=== PATIENT | male | born 1970 | race African-American/Black ===

== ENCOUNTER 2020-08-13 08:59 | Outpatient (CLI) | payer OTHER ==
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
== END 2020-08-13 09:00 | disposition home or self-care (01) ==
LOC: BICRAD 08:59
PROVIDERS: ATTEND Nurse Practitioner Family
DX: V89.2XXA Person injured in unspecified motor-vehicle accident, traffic, initial encounter (principal)
CPT/HCPCS: 72040; 72072

== ENCOUNTER 2021-08-15 20:31 | Emergency (ER) | payer OTHER, SELFPAY ==
[2021-08-15] MEDS ORDERED: Acetaminophen 500 MG TAB ONE (21:06)
[2021-08-15 21:12] LABS: Bilirubin Negative (Negative); Blood, Urine Negative (Negative); Clarity Clear (Clear); Glucose, Urine (Dipstick) Normal (Negative); Ketone, Urine Negative (Negative); Leukocyte Negative Leu/uL (Negative); Nitrite Negative (Negative); Protein, Urine (Dipstick) 10 mg/dL (Neg-Trace); Specific Gravity, Urine 1.023 (1.002-1.036); Urobilinogen 3 mg/dL (Less than 2); pH, Urine 7.5 (5.0-9.0)
[2021-08-15 21:25] LABS: #Basophils 0.1 thou/uL (0.0-0.2); #Eosinphils 0.1 thou/uL (0.0-0.7); #Lymphocytes 0.6 thou/uL (1.20-3.40); #Neutrophils 8.8 thou/uL (1.40-6.50); %Basophils 0.6 % (0.0-1.0); %Eosinophils 0.6 % (0.0-10.0); %Lymphocytes 5.8 % (21.0-51.0); %Monocytes 9.1 % (0.0-10.0); %Neutrophils 83.9 % (42.0-75.0); Hemoglobin 13.1 g/dL (14.0-18.0); Mean Corpuscular Hemoglobin 31.3 pg (27.0-31.0); Mean Corpuscular Volume 91.9 fL (78.0-98.0); Mean Platelet Volume 6.8 fL (7.4-10.4); Platelet Count 295 thou/uL (130-400); RBC Distribution Width 12.3 % (11.5-14.5); Red Blood Cell (RBC) Count 4.19 mill/uL (4.70-6.10); White Blood Cell (WBC) Count 10.5 thou/uL (4.8-10.8)
[2021-08-15 21:48] LABS: ALT (SGPT) 46 U/L (8-55); AST (SGOT) 29 U/L (5-34); Alkaline Phosphatase 80 U/L (40-110); Anion Gap 15 mmol/L (10-20); BUN (Urea Nitrogen) 10 mg/dL (8.9-20.6); Bilirubin, Total 0.8 mg/dL (0.2-1.2); Calc. Creatinine Clearance 0 mL/min (70-130); Calcium 8.8 mg/dL (7.8-10.44); Carbon Dioxide 24 mmol/L (22-29); Chloride 99 mmol/L (98-107); Globulin 3.5 g/dL (2.4-3.5); Glucose 169 mg/dL (70-105); Potassium 4.1 mmol/L (3.5-5.1); Protein, Total 7.5 g/dL (6.0-8.3); Sodium 134 mmol/L (136-145)
[2021-08-15 22:14] LABS: SARS-CoV-2 NAA Rapid Test DETECTED (NotDetected)
[2021-08-15] MEDS ORDERED: Dexamethasone 4 MG TAB ONE (23:07)
[2021-08-15] MEDS ORDERED: Dexamethasone 4 mg/ml Vial ONE (23:10)
== END 2021-08-15 23:00 | disposition home or self-care (01) ==
LOC: ERS 20:31
DX: U07.1 COVID-19 (principal); J45.909 Unspecified asthma, uncomplicated
CPT/HCPCS: 0240U; 71045; 80053; 81003; 85025; 85652; 86140; 93005; 96372; J1100; J8540